=== PATIENT | female | born 2000 | race Caucasian/White ===

== ENCOUNTER → 2023-08-29 17:46 | Outpatient (CLI) | payer OTHER, SELFPAY ==
--- NOTE | 2023-08-29 17:47 | DI.RAD.S_ITS ---
PROCEDURE: XR ANKLE RT MIN 3V INDICATIONS: Right ankle pain TECHNIQUE: 3 views of the ankle were acquired. COMPARISON: None FINDINGS: Bones: No definite acute fractures or dislocations. Ossific density inferior to the lateral malleolus appears corticated. Ankle mortise is normally aligned on nonweightbearing view. No suspicious bony lesions. Soft tissues: No tibiotalar joint effusion. Achilles tendon appears normal. IMPRESSION: No definite acute osseous abnormality. Ossific density inferior to the lateral malleolus appears corticated and likely represents sequela of remote injury versus accessory ossicle. Correlate for point tenderness. If clinical symptoms persist, consider repeat radiograph in 10-14 days versus cross-sectional imaging. Dictated by: Jo Juinor M.D. on 08/30/2023 at 14:45 Approved by: Jo Junior M.D. on 08/30/2023 at 14:46
== END ==
PROVIDERS: Referring Provider Nurse Practitioner Family; Visit Provider Nurse Practitioner Family
DX: M25.571 Pain in right ankle and joints of right foot (principal)
CPT/HCPCS: 73610